=== PATIENT | female | born 1985 | race American Indian/Alaskan Native ===

== ENCOUNTER 2017-02-18 20:51 | Emergency (ER) | payer OTHER ==
[2017-02-18 21:02] VITALS: BP 149/82; PULSE 114; RESP 20; TEMP 97.6; O2SAT 99
--- NOTE | 2017-02-18 23:23 | ED PDOC ---
HPI: Psych/Substance Abuse Time Seen by Provider: 02/18/17 20:54 Chief Complaint (Nursing): Alcohol Ingestion Chief Complaint (Provider): ETOH History Per: Patient Additional Complaint(s): pt admits to drinking [place]. pt stating she was on the train from [place]. Pt ambulates with steady gait, awake and alert. (+) AOB Past Medical History Reviewed: Nursing Documentation, Vital Signs Vital Signs: Last Vital Signs Temp 97.6 F 02/18/17 20:59 Pulse 114 H 02/18/17 20:59 Resp 20 02/18/17 20:59 BP 149/82 02/18/17 20:59 Pulse Ox 99 02/18/17 20:59 - Medical History PMH: No Chronic Diseases - Surgical History Surgical History: No Surg Hx - Family History Family History: States: No Known Family Hx - Living Arrangements Living Arrangements: With Family - Social History Current smoker - smoking cessation education provided: No Alcohol: None Drugs: Denies - Allergies Allergies/Adverse Reactions: Allergies Allergy/AdvReac Type Severity Reaction Status Date / Time No Known Allergies Allergy Verified 02/18/17 20:59 Review of Systems ROS Statement: Except As Marked, All Systems Reviewed And Found Negative Physical Exam - Reviewed Nursing Documentation Reviewed: Yes Vital Signs Reviewed: Yes - Physical Exam Appears: Positive for: Well, Non-toxic, No Acute Distress Head Exam: Positive for: ATRAUMATIC, NORMAL INSPECTION, NORMOCEPHALIC Skin: Positive for: Normal Color, Warm, DRY Eye Exam: Positive for: EOMI, Normal appearance, PERRL ENT: Positive for: Normal ENT Inspection Neck: Positive for: Normal, Painless ROM Cardiovascular/Chest: Positive for: Regular Rate, Rhythm Respiratory: Positive for: CNT, Normal Breath Sounds Gastrointestinal/Abdominal: Positive for: Normal Exam, Bowel Sounds, Soft Back: Positive for: Normal Inspection Extremity: Positive for: Normal ROM Neurologic/Psych: Positive for: Alert, Oriented - ECG O2 Sat by Pulse Oximetry: 99 Medical Decision Making Medical Decision Making: Pt's presented to ED in order to take her home Pt stable for discharge Disposition - Clinical Impression Clinical Impression: Alcohol ingestion - Patient ED Disposition Is Patient to be Admitted: No - Disposition Disposition: Routine/Home Disposition Time: 00:00 Condition: STABLE Instructions: Alcohol Intoxication (ED) Forms: Reppler (Danish) - POA Present On Arrival: None
== END 2017-02-18 21:27 | disposition home or self-care (01) ==
LOC: H.ER 20:51
DX: F10.10 Alcohol abuse, uncomplicated (principal)